=== PATIENT | male | born 1940 | race Caucasian/White ===

== ENCOUNTER 2019-03-25 07:03 | Inpatient (IN) | payer MEDICARE, OTHER ==
--- NOTE | 2019-03-17 10:14 | PREOPHP ---
DATE OF ADMISSION: 03/25/2019 The patient will have surgery with Dr. Enrique Moseley 03/25/2019. REASON FOR CONSULTATION: Consultation requested by Dr. Enrique Moseley for medical evaluation and clearance of a 79-year-old gentleman about to undergo surgery. Thank you, Dr. Moseley, for participating and allowing us to participate in care of our patient. HISTORY OF PRESENT ILLNESS: Marking that she was a 79-year-old gentleman, issues with his right hip. He is currently being admitted for correction of the above problem in terms of his mass. PAST MEDICAL AND SURGICAL HOSPITALIZATIONS: The patient has not had any medical hospitalizations. He has had the following surgeries: He has had a coronary artery bypass surgery for coronary artery disease, had a radical robotic prostatectomy done for prostate cancer, had several procedures for kidney stones and also had a fistula in ano repaired. He had fractured his right and left foot. MEDICATIONS: He is currently taking the following medications: 1. Lipitor 40 mg a day. 2. Toprol-XL 50 mg a.m. and 25 mg p.m. 3. Cozaar 100 mg a day. 4. Amlodipine 5 mg b.i.d. 5. Baby aspirin and pain medications. ALLERGIES: HE IS NOT ALLERGIC TO ANY MEDICATIONS. SOCIAL HISTORY: The patient is , has 2 sons and 7 grandchildren. He does not smoke. Alcohol socially. Drinks primarily decaf coffee. He has no difficulty sleeping at night and is currently retired. FAMILY HISTORY: Father at age 84 of an MA. Mother age 84 of a stroke. Two sisters have . One of malignancy. There is a family history of heart, hypertension, stroke and cancer. REVIEW OF SYSTEMS: HEENT: Tinnitus CARDIORESPIRATORY: Denies any chest pain or shortness of breath. GASTROINTESTINAL: No melena or hematemesis. GENITOURINARY: No urgency and frequency. MUSCULOSKELETAL: Positive for right hip and back pain. NEUROPSYCHIATRIC: Unremarkable. GENERAL HEALTH: As above. PHYSICAL EXAMINATION: VITAL SIGNS: The patient's blood pressure was 140/72, pulse was 76 and regular, respirations were 18, temperature 97.6. Height 5 feet 8 inches, weight 250 pounds. GENERAL: The patient was noted to be a well-developed, well-nourished male, alert and cooperative, in no apparent acute distress, oriented to time, place, and person. HEAD, EARS, EYES, NOSE AND THROAT: Head was atraumatic. Eyes: Pupils were equal, reactive to light and accommodation. Fundi were benign. Tympanic membranes were unremarkable. Nose was negative. Mouth was unremarkable. Fair oral hygiene was present. NECK: Supple without any rigidity. Trachea was midline. Thyroid was within normal limits. Neck veins were flat. Carotid pulses were equal. No bruits were heard. BACK: Unremarkable. CHEST: Symmetrical scar from prior sternotomy was noted. AXILLARY AND BREAST EXAM: Did not reveal any obvious masses. LUNGS: Clear to percussion and auscultation. HEART: PMI is fifth intercostal space at the midclavicular line. A regular sinus rhythm was noted. No significant murmurs, rubs, or gallops being elicited. ABDOMEN: Soft, good bowel sounds were noted. No significant organomegaly, masses, or tenderness being noted. Scar from prior prostate surgery being noted. GENITALIA: Normal male external genitalia. RECTAL AND PROSTATIC: Up to date per . EXTREMITIES: Did not reveal any clubbing, edema or cyanosis. Peripheral pulses were physiologic. SKIN: Moist and warm without any eruptions. No gross lymphadenopathy was noted. NEUROLOGIC: Grossly intact. IMPRESSION: 1. Degenerative joint disease, right hip. 2. Hypertension. 3. Hyperlipidemia. 4. Coronary artery disease status post coronary artery bypass surgery. 5. Prostate cancer status post prostatectomy. 6. Metabolic syndrome. 7. Stable health. DISCUSSION: Review of laboratory and other data revealed the following: The patient's EKG revealed patient's chemistries revealed normal electrolytes, glucose, BUN, creatinine, calcium, uric acid, and protein. His liver function tests, cholesterol, magnesium, and serum iron were normal. CBC, UA, PT and PTT were normal as well. The patient's EKG revealed sinus rhythm and has some nonspecific changes. The patient will be having any cardiac clearance prior to this surgery with Dr. Alex Betancourt. Chest x-ray revealed status post sternotomy, no acute infiltrates, nor were there any acute cardiopulmonary changes being noted. Dr. Moseley, I see no contraindication from my standpoint, this patient is undergoing current proposed surgery under desired form of anesthesia. I feel he is a suitable candidate at this particular point in time. The patient will also be getting cardiac clearance from his high climber and we will be more than happy to follow him with you during his stay at [facility]. Thank you again, Dr. Moseley, for participating and allowing us to participate in care of our patients. Dictated By: MANDEEP ROBERTSON MD SS/NTS Conf#: [id number] DID#: [id number] CC: ENRIQUE MOSELEY MD;*EndCC* MTDD
[2019-03-22 15:50] VITALS: BMI 36.0
[~2019-03-25] VITALS: Ht 177.8 cm; Wt 112.0 kg
[2019-03-25] VITALS (26 sets, daily range): BP systolic 112–174; BP diastolic 62–89; PULSE 66–85; RESP 14–21; Ht 177.8 cm; Wt 112.0 kg
--- NOTE | 2019-03-25 05:48 | HPN ---
Date/Time of Note Date/Time of Note DATE: 03/25/19 TIME: 05:48 Interval H&P Admission Note Pt. seen H&P reviewed: No system changes ENRIQUE MOSELEY MD Mar 25, 2019 05:48
--- NOTE | 2019-03-25 05:50 | OPR ---
Date/Time of Note Date/Time of Note DATE: 03/25/19 TIME: 05:48 Operative Report Procedure Date: Mar 25, 2019 Preoperative Diagnosis Right hip primary arthritis Postoperative Diagnosis Right hip primary arthritis Operation/Procedure Performed 1. Right total hip arthroplasty 2. Right hip injection of PRP Surgeon see signature line Pathological Technician Varun Ryan MD Second Pathological Technician: ALYCE LOVE PA-C Anesthesia Type: general Estimated Blood Loss: 150 - 200 ml's Transfusion none Specimen None Grafts/Implants See op note Complications none Pt Condition Post Procedure: stable Disposition: PACU Procedure Description MARINE PLUMBER SURGEON: Varun Ryan MD was asked to be present at my request as a result of the complexity associated with this procedure including positioning of the extremity, positioning of the instrumentation and protection of the neurovascular structures. In my opinion, the assistance offered by a certified surgical assistant is insufficient and Dr. Ryan should be compensated for his time. PROCEDURE IN DETAIL: Following the administration of general endotracheal anesthesia supplemented with a spinal anesthetic, the patient was placed in the supine position. The antecubital fossa on the right was prepped and 60 cc of blood were aspirated. Under sterile conditions, the blood was passed off to the sales representative rural power from the company who prepared the PRP solution. The right lower extremity was then prepped and draped in the usual sterile fashion. A football scout radiograph was obtained for preliminary limb length and femoral size as well as acetabular size. There were severe arthritic changes noted. Over the right hip, a lateral incision was then made exposing the tensor fascia and the fascia was incised. The tensor was retracted laterally and the vessels were cauterized. The anterior capsule was then identified and prepared incised. A capsulotomy was then performed and the femoral head was then evaluated. Severe arthritic changes were noted. A femoral head cut was then made in the appropriate degree of version and inclination. Following dislocation, severe arthritic changes were noted with very certain severe cystic changes in the femoral head. The acetabulum was then exposed and a capsulectomy and labrectomy were completed. The central portion was then entered and serially reamed up to the 65 mm size. A Depuy Albert Lea cup which was 66 mm, with a standard liner was then fit into position with solid fixation. A 30 mm screw was used for additional fixation. Attention was then directed to the femur, the femur was exposed and prepared. The canal was entered and serially reamed up to the size 7, high offset. The femoral canal was then thoroughly irrigated and the PRP solution was then instilled into the femoral canal. A size 7 high offset Depuy Actis stem was then inserted with solid fixation. A 36 mm, -1.5 mm femoral head, which was metal was then inserted. The leg was taken through full range of motion with no evident instability. In addition, radiographs revealed excellent position with reproduction of the limb lengths within a millimeter. The wound was irrigated thoroughly. The anterior capsule was then closed using a running #2 suture. The wound was then closed in layers and a Prenio for the final cover. This was watertight. Estimated blood loss was procedure was 200 cc. Postoperative radiographs will be obtained in the recovery room. ENRIQUE MOSELEY MD Mar 25, 2019 05:50
[~2019-03-25 07:03] MED LIST: BUPIVACAINE 0.5% (SDV) 30 ML, morphine SULFATE (PF) 8 MG, EPINEPHrine 0.3 MG, KETOROLAC... IRR SCH; CEFAZOLIN 2 GM/50 ML (PMX) 50 ML IVPB ONE; DEXAMETHASONE 2 MG TAB PO SCH; GABAPENTIN 300 MG CAP PO SCH; LACTATED RINGER'S 1,000 ML IV SCH; SOD CHLORIDE 0.9% 100 ML, TRANEXAMIC ACID 3,000 MG IRR SCH
[2019-03-25] MEDS ORDERED: METO-335 PO (07:57)
[2019-03-25] MEDS ORDERED: METO-319 PO (07:57)
[2019-03-25] MEDS ORDERED: LOSA100T15 PO (07:57)
[2019-03-25] MEDS ORDERED: AMLO2.5T78 PO (07:58)
[2019-03-25] MEDS ORDERED: ATOR40TA68 PO (07:58)
[2019-03-25] MEDS ORDERED: DOXY100T20 PO (08:00)
--- NOTE | 2019-03-25 08:08 | PREAC ---
Date/Time of Note Date/Time of Note DATE: 03/25/19 TIME: 08:07 Anesthesia Eval and Record Evaluation Time Pre-Procedure Interview DATE: 03/25/19 TIME: 08:07 Age 79 Sex male NPO: 8 hrs Preoperative diagnosis right hip osteoarthritis Planned procedure right anterior total hip arthroplasty Past Medical History Past Medical History: Includes Cardio: HTN, Dyslipidemia, CAD, CABG Renal: Other (kidney stones, history of prostate cancer ) GI: Obesity Surgery & Anesthesia Issues No known issue Meds Anticoagulation: No Beta Patricia within 24 hr: Yes Reason Beta Patricia not given: Bradycarida, Hypotension Reported Medications Doxycycline Hyclate* (Doxycycline Hyclate*) 100 Mg Tablet.dr, 100 MG PO BID, TAB STARTED 03-22-19 FOR 5 DAYS 03/25/19 Amlodipine Besylate* (Amlodipine Besylate*) 2.5 Mg Tablet, 2.5 MG PO DAILY, #30 TAB 03/25/19 Atorvastatin* (Atorvastatin*) 40 Mg Tablet, 40 MG PO QHS, #30 TAB 03/25/19 Losartan Potassium* (Losartan Potassium*) 100 Mg Tablet, 100 MG PO DAILY, TAB 03/25/19 Metoprolol Succinate* (Toprol XL*) 50 Mg Tab.er.24h, 50 MG PO QAM, #30 TAB 03/25/19 Metoprolol Succinate* (Toprol XL*) 25 Mg Tab.sr.24h, 25 MG PO QPM, #30 TAB 03/25/19 Current Medications Tranexamic Acid 100 ml @ 200 mls/hr Pre-op IVPB ; Start 03/25/19 at 06:30; Stop 03/25/19 at 16:00 Sodium Chloride/ Tranexamic Acid INTRA-OP IRR ; Start 03/25/19 at 06:30; Stop 03/25/19 at 16:00 Bupivacaine HCl/ Morphine Sulfate/ Epinephrine/ Ketorolac Tromethamine/ Clonidine/Sodium Chloride/ Vancomycin HCl INTRA-OP IRR ; Start 03/25/19 at 06:30 Dexamethasone (Decadron) 2 mg PREOP PO ; Start 03/25/19 at 06:30; Stop 03/25/19 at 16:00 Gabapentin (Neurontin) 300 mg ONCE PO ; Start 03/25/19 at 06:30; Stop 03/25/19 at 16:00 Lactated Ringer's 1,000 ml @ 0 mls/hr Q0M IV ; Start 03/25/19 at 06:00; Stop 03/25/19 at 16:00 Meds reviewed: Yes Allergies Coded Allergies: No Known Drug Allergies (Verified Allergy, Unknown, 03/25/19) Allergies Reviewed: Yes Labs/Studies Labs Reviewed: Reviewed by anesthesiologist test: N/A Studies: ECG, CXR Pre-procedure Exam Airway: Adequate mouth opening, Adequate thyromental dist Mallampati: Mallampati II Teeth: Normal Lung: Normal Heart: Normal ASA Physical Status ASA physical status: 3 Emergency: None Planned Anesthetic General/MAC: LMA Neuraxial: Spinal Nerve block: Femoral (right fascia iliaca) Planned Pain Management Sub-arachniod narcotics, Single shot nerve block, Parenteral pain med, Local by surgeon Pre-operative Attestations Prior to commencing anesthesia and surgery, the patient was re-evaluated, there was verification of: *The patient's identity *The results of appropriate recent lab work and preoperative vital signs *The above evaluation not changing prior to induction *Anesthetic plan, risk benefits, alternative and complications discussed with patient/family; questions answered; patient/family understands, accepts and wishes to proceed. MICHELLE LORA MD Mar 25, 2019 08:08
[2019-03-25] MEDS ORDERED: FENTAnyl 50 MCG/ML VIAL ONE (09:57)
[2019-03-25] MEDS ORDERED: MIDAZOLAM 1 MG/ML 2 ML INJ ONE (10:00)
[2019-03-25] MEDS ORDERED: MEPERIDINE 25 MG INJ IV PRN (10:00)
[2019-03-25] MEDS ORDERED: EPHEDrine 25 MG/5 ML SYG IV PRN (10:00)
[2019-03-25] MEDS ORDERED: HYDROmorphONE 1 MG/5 ML IV SYRINGE IV PRN ×3 (10:00)
[2019-03-25] MEDS ORDERED: LABETALOL HCL 20MG INJ IV PRN (10:00)
[2019-03-25] MEDS ORDERED: hydrALAzine 20 MG INJ IV PRN (10:00)
[2019-03-25] MEDS ORDERED: PROCHLORPERAZINE 10 MG INJ IV PRN (10:00)
[2019-03-25] MEDS ORDERED: ONDANSETRON 4 MG INJ IV PRN ×2 (10:00→12:30)
[2019-03-25] MEDS ORDERED: DIPHENHYDRAMINE 50 MG INJ IV PRN ×2 (10:00→12:30)
[2019-03-25] MEDS ORDERED: FENTAnyl 50 MCG/ML VIAL IV PRN (10:00)
[2019-03-25] MEDS ORDERED: POLYMYXIN/BACITRACIN 1L IRRIG ONE (10:07)
[2019-03-25] MEDS ORDERED: CEFAZOLIN 1 GM INJ ONE (10:19)
[2019-03-25] MEDS ORDERED: PROPOFOL 20 ML ONE (10:19)
[2019-03-25] MEDS ORDERED: LIDOCAINE 2% (SDV) 5 ML INJ ONE (10:19)
[2019-03-25] MEDS ORDERED: TRANEXAMIC ACID 1GM/100ML(PMX) 100 ML ONE ×2 (10:19→10:34)
[2019-03-25] MEDS ORDERED: CA CHLORIDE 10% 10 ML SYRINGE ONE (10:33)
[2019-03-25] MEDS ORDERED: THROMBIN 5000 UNIT (RECOTHROM) VIAL ONE (10:33)
[2019-03-25] MEDS ORDERED: FAMOTIDINE 20 MG INJ ONE (10:50)
[2019-03-25] MEDS ORDERED: DEXAMETHASONE 4 MG/ML 5 ML INJ ONE (10:50)
[2019-03-25] MEDS ORDERED: ONDANSETRON 4 MG INJ ONE (10:50)
[2019-03-25] MEDS ORDERED: POLYMYXIN/BACITRACIN 1L IRRIG IRR ONE (10:54)
[2019-03-25] MEDS: TRANEXAMIC ACID 1GM/100ML(PMX) 100 ML IVPB SCH ×2 (10:55→12:00)
[2019-03-25] MEDS ORDERED: EPHEDrine 25 MG/5 ML SYG ONE (11:03)
[2019-03-25] MEDS ORDERED: ROPIVACAINE 0.5 % 30 ML VIAL ONE (11:37)
[2019-03-25] MEDS ORDERED: NACL 0.9% 3 ML SYG IV SCH (12:30)
[2019-03-25] MEDS ORDERED: MAGNESIUM HYDROXIDE 30ML CUP PO PRN (12:30)
[2019-03-25] MEDS ORDERED: ZOLPIDEM 5 MG TAB PO PRN (12:30)
[2019-03-25] MEDS ORDERED: HYDROmorphONE 1 MG/ML SYG IV PRN (12:30)
[2019-03-25] MEDS ORDERED: oxyCODONE 5 MG TAB PO PRN ×2 (12:30)
--- NOTE | 2019-03-25 12:55 | PAC ---
Date/Time of Note Date/Time of Note DATE: 03/25/19 TIME: 12:55 Post-Anesthesia Notes Post-Anesthesia Note Last documented vital signs Vital Signs Date Temp Pulse Resp B/P (MAP) Pulse Ox O2 O2 Flow FiO2 Time Delivery Rate 03/25/19 97.9 85 16 174/89 95 Room Air 08:27 (117) Activity: WNL Respiratory function: WNL Cardiovascular function: WNL Mental status: Baseline Pain reasonably controlled: Yes Hydration appropriate: Yes Nausea/Vomiting absent: Yes Comments BP: 140/70 HR: 76 RR: 15 T: 99.6 SaO2: 100% MICHELLE LORA MD Mar 25, 2019 12:55
[2019-03-25] MEDS: ACETAMINOPHEN 1000MG/100ML IV 100 ML IVPB SCH ×2 (13:16→20:52)
[2019-03-25] MEDS: CEFAZOLIN 1 GM/50 ML (PMX) 50 ML IVPB SCH ×2 (13:26→20:53)
--- NOTE | 2019-03-25 13:38 | PDOCDIS ---
Discharge Instructions DIAGNOSIS Discharge Diagnosis Primary hip arthritis CONDITION [id number] Patient Condition: Betbv8o Good HOME CARE INSTRUCTIONS: [id number] Diet Instructions: [id number] Regular ACTIVITY: [id number] Activity Restrictions: [id number] Slowly Increase Activity Keep Limb Elevated [id number] Bathing Restrictions: [id number] Shower FOLLOW UP/APPOINTMENTS Follow-up Plan 2 weeks in the office SCHOOL/WORK RELEASE May return to School/Work with: With Restrictions School/Work Release Comment: No hip extension for 6 weeks ENRIQUE MOSELEY MD Mar 25, 2019 13:38
--- NOTE | 2019-03-25 13:40 | CONS ---
Consult Date/Type/Reason Admit Date/Time Mar 25, 2019 at 07:03 Initial Consult Date 03/16/2019 Type of Consultation: internal medicine Reason for Consultation pre-op medical evaluation and clearance . Requesting Provider: ENRIQUE MOSELEY MD Date/Time of Note DATE: 03/25/19 TIME: 13:33 Subjective post-op alert and responds to questions Objective Vitals Vital Signs Date Temp Pulse Resp B/P (MAP) Pulse Ox O2 O2 Flow FiO2 Time Delivery Rate 03/25/19 70 16 135/73 100 Nasal 2.0 13:20 (93) Cannula 03/25/19 99.6 12:34 Exam vital signs stable heent negative lungs clear heart regular rhythm abdomen soft Results/Medications Result Diagram: 03/25/19 1256 Results 24 hrs Laboratory Tests Test 03/25/19 12:56 White Blood Count 10.3 Red Blood Count 4.37 L Hemoglobin 14.0 Hematocrit 42.9 Mean Corpuscular Volume 98.2 Mean Corpuscular Hemoglobin 32.0 Mean Corpuscular Hemoglobin Concent 32.6 Red Cell Distribution Width 13.1 Platelet Count 183 Mean Platelet Volume 10.5 H Immature Granulocytes % 0.800 H Neutrophils % 89.7 H Lymphocytes % 7.9 L Monocytes % 1.3 Eosinophils % 0.1 Basophils % 0.2 Nucleated Red Blood Cells % 0.0 Immature Granulocytes # 0.080 H Neutrophils # 9.2 H Lymphocytes # 0.8 Monocytes # 0.1 L Eosinophils # 0.0 Basophils # 0.0 Nucleated Red Blood Cells # 0.0 Home Meds Reported Medications Doxycycline Hyclate* (Doxycycline Hyclate*) 100 Mg Tablet.dr, 100 MG PO BID, TAB STARTED 03-22-19 FOR 5 DAYS 03/25/19 Amlodipine Besylate* (Amlodipine Besylate*) 2.5 Mg Tablet, 2.5 MG PO DAILY, #30 TAB 03/25/19 Atorvastatin* (Atorvastatin*) 40 Mg Tablet, 40 MG PO QHS, #30 TAB 03/25/19 Losartan Potassium* (Losartan Potassium*) 100 Mg Tablet, 100 MG PO DAILY, TAB 03/25/19 Metoprolol Succinate* (Toprol XL*) 50 Mg Tab.er.24h, 50 MG PO QAM, #30 TAB 03/25/19 Metoprolol Succinate* (Toprol XL*) 25 Mg Tab.sr.24h, 25 MG PO QPM, #30 TAB 03/25/19 Medications Current Medications Tranexamic Acid 100 ml @ 200 mls/hr Pre-op IVPB Last administered on 03/25/19at 10:55; Start 03/25/19 at 06:30; Stop 03/25/19 at 16:00 Sodium Chloride/ Tranexamic Acid INTRA-OP IRR ; Start 03/25/19 at 06:30; Stop 03/25/19 at 16:00 Dexamethasone (Decadron) 2 mg PREOP PO Last administered on 03/25/19at 08:09; Admin Dose 2 MG; Start 03/25/19 at 06:30; Stop 03/25/19 at 16:00 Gabapentin (Neurontin) 300 mg ONCE PO Last administered on 03/25/19at 08:09; Admin Dose 300 MG; Start 03/25/19 at 06:30; Stop 03/25/19 at 16:00 Lactated Ringer's 1,000 ml @ 0 mls/hr Q0M IV Last administered on 03/25/19at 08:09; Admin Dose 0 MLS/HR; Start 03/25/19 at 06:00; Stop 03/25/19 at 16:00 Hydromorphone HCl (Dilaudid) 0.2 mg PACU PRN IV MILD PAIN 1-3; Start 03/25/19 at 10:00; Stop 03/25/19 at 14:00 Hydromorphone HCl (Dilaudid) 0.4 mg PACU PRN IV MOD PAIN 4-6; Start 03/25/19 at 10:00; Stop 03/25/19 at 14:00 Hydromorphone HCl (Dilaudid) 0.6 mg PACU PRN IV SEVERE PAIN 7-10; Start 03/25/19 at 10:00; Stop 03/25/19 at 14:00 Fentanyl (Sublimaze) 25 mcg PACU ORDER PRN IV MILD PAIN 1-3; Start 03/25/19 at 10:00; Stop 03/25/19 at 14:00 Ondansetron HCl (Zofran Inj) 4 mg PACU ORDER PRN IV NAUSEA/VOMITING; Start 03/25/19 at 10:00; Stop 03/25/19 at 14:00 Prochlorperazine (Compazine Inj) 5 mg PACU ORDER PRN IV NAUSEA/VOMITING; Start 03/25/19 at 10:00; Stop 03/25/19 at 14:00 Labetalol HCl (Labetalol) 5 mg PACU ORDER PRN IV HIGH BLOOD PRESSURE; Start 03/25/19 at 10:00; Stop 03/25/19 at 14:00 Hydralazine HCl (Apresoline) 5 mg PACU ORDER PRN IV HIGH BLOOD PRESSURE; Start 03/25/19 at 10:00; Stop 03/25/19 at 14:00 Ephedrine Sulfate 5 mg PACU ORDER PRN IV BLOOD PRESSURE SUPPORT; Start 03/25/19 at 10:00; Stop 03/25/19 at 14:00 Meperidine HCl (Demerol) 25 mg PACU ORDER PRN IV .RIGORS; Start 03/25/19 at 10:00; Stop 03/25/19 at 14:00 Diphenhydramine HCl (Benadryl) 12.5 mg PACU ORDER PRN IV .PRURITUS; Start 03/25/19 at 10:00; Stop 03/25/19 at 14:00 Amlodipine Besylate (Norvasc) 2.5 mg DAILY PO ; Start 03/26/19 at 09:00 Atorvastatin Calcium (Lipitor) 40 mg QHS PO ; Start 03/25/19 at 21:00 Losartan Potassium (Cozaar) 100 mg DAILY PO ; Start 03/26/19 at 09:00 Metoprolol Succinate (Toprol Xl) 25 mg QPM PO ; Start 03/25/19 at 21:00 Metoprolol Succinate (Toprol Xl) 50 mg QAM PO ; Start 03/26/19 at 09:00 Lactated Ringer's 1,000 ml @ 100 mls/hr Q10H IV ; Start 03/25/19 at 12:02 Cefazolin Sodium 50 ml @ 100 mls/hr Q8H IVPB Last administered on 03/25/19at 13:26; Admin Dose 100 MLS/HR; Start 03/25/19 at 12:30; Stop 03/26/19 at 04:59 Senna/Docusate Sodium (Senokot-S) 1 tab BID PO ; Start 03/25/19 at 21:00 Simethicone (Mylicon) 80 mg TID PRN PO .GAS; Start 03/25/19 at 12:30 Magnesium Hydroxide (Milk Of Mag) 30 ml BID PRN PO .CONSTIPATION; Start 03/25/19 at 12:30 Magnesium Hydroxide (Milk Of Mag) 30 ml HS PO ; Start 03/27/19 at 21:00 Dexamethasone (Decadron) 2 mg Q6 PO ; Start 03/25/19 at 18:00; Stop 03/26/19 at 12:01 Gabapentin (Neurontin) 300 mg HS PO ; Start 03/25/19 at 21:00 Acetaminophen 100 ml @ 400 mls/hr Q8H IVPB Last administered on 03/25/19at 13:16; Admin Dose 400 MLS/HR; Start 03/25/19 at 12:30; Stop 03/26/19 at 04:44 Oxycodone HCl (Roxicodone) 15 mg Q4H PRN PO .PAIN; Start 03/25/19 at 12:30 Oxycodone HCl (Roxicodone) 10 mg Q4H PRN PO .PAIN; Start 03/25/19 at 12:30 Oxycodone HCl (Roxicodone) 5 mg Q4H PRN PO .PAIN; Start 03/25/19 at 12:30 Hydromorphone HCl (Dilaudid) 1 mg Q4H PRN IV .BREAKTHROUGH PAIN; Start 03/25/19 at 12:30 Ondansetron HCl (Zofran Inj) 4 mg Q6H PRN IV NAUSEA/VOMITING; Start 03/25/19 at 12:30 Diphenhydramine HCl (Benadryl) 25 mg Q6H PRN IV .PRURITUS; Start 03/25/19 at 12:30 Zolpidem Tartrate (Ambien) 10 mg HS PRN PO .INSOMNIA; Start 03/25/19 at 12:30 IV Flush (NS 3 ml) 3 ml per protocol IV ; Start 03/25/19 at 12:30 Aspirin (Ecotrin) 325 mg DAILY PO ; Start 03/26/19 at 09:00 Assessment/Plan Hospital Course (Demo Recall) patient post op THR right side stable at this point Assessment/Plan (Daily) pre-op meds reordered patient stable at this point will follow thank you MANDEEP Banks MD Mar 25, 2019 13:40
[2019-03-25] MEDS: DEXAMETHASONE 2 MG TAB PO SCH ×2 (17:30→23:53)
[2019-03-25] MEDS: LACTATED RINGER'S 1,000 ML IV SCH ×2 (17:32→22:02)
[2019-03-25] MEDS: SENNA/DOCUSATE NA (8.6MG/50MG) TAB PO SCH (20:53)
[2019-03-25] MEDS ORDERED: GABAPENTIN 300 MG CAP PO SCH (21:00)
[2019-03-25] MEDS ORDERED: ATORVASTATIN 40 MG TAB PO SCH (21:00)
[2019-03-25] MEDS ORDERED: METOPROLOL (XL) 25 MG TAB PO SCH (21:00)
[2019-03-26] MEDS: ACETAMINOPHEN 1000MG/100ML IV 100 ML IVPB SCH (04:55)
[2019-03-26] MEDS: LACTATED RINGER'S 1,000 ML IV SCH (05:18)
[2019-03-26] MEDS: CEFAZOLIN 1 GM/50 ML (PMX) 50 ML IVPB SCH (05:18)
[2019-03-26] MEDS: DEXAMETHASONE 2 MG TAB PO SCH ×2 (05:37→12:28)
--- NOTE | 2019-03-26 05:48 | PN ---
Date/Time of Note Date/Time of Note DATE: 03/26/19 TIME: 05:47 Subjective Awake and alert. Doing well. Objective Vitals Vital Signs Date Temp Pulse Resp B/P (MAP) Pulse Ox O2 O2 Flow FiO2 Time Delivery Rate 03/25/19 98.0 72 112/62 96 Nasal 23:51 (79) Cannula 03/25/19 18 20:05 03/25/19 2.0 16:00 Intake and Output 03/25/19 03/25/19 03/26/19 1515:00 23:00 07:00 IntakeIntake Total 450 ml 1240 ml OutputOutput Total 400 ml 400 ml BalanceBalance 50 ml 840 ml Wound clean and dry. Neurologically intact. No signs of DVT. Results Result Diagram: 03/26/19 0433 Medications Medications Current Medications Amlodipine Besylate (Norvasc) 2.5 mg DAILY PO ; Start 03/26/19 at 09:00 Atorvastatin Calcium (Lipitor) 40 mg QHS PO Last administered on 03/25/19at 20:53; Admin Dose 40 MG; Start 03/25/19 at 21:00 Losartan Potassium (Cozaar) 100 mg DAILY PO ; Start 03/26/19 at 09:00 Metoprolol Succinate (Toprol Xl) 25 mg QPM PO Last administered on 03/25/19at 20:53; Admin Dose 25 MG; Start 03/25/19 at 21:00 Metoprolol Succinate (Toprol Xl) 50 mg QAM PO ; Start 03/26/19 at 09:00 Lactated Ringer's 1,000 ml @ 100 mls/hr Q10H IV Last administered on 03/26/19at 05:18; Admin Dose 100 MLS/HR; Start 03/25/19 at 12:02 Senna/Docusate Sodium (Senokot-S) 1 tab BID PO Last administered on 03/25/19at 20:53; Admin Dose 1 TAB; Start 03/25/19 at 21:00 Simethicone (Mylicon) 80 mg TID PRN PO .GAS; Start 03/25/19 at 12:30 Magnesium Hydroxide (Milk Of Mag) 30 ml BID PRN PO .CONSTIPATION; Start 03/25/19 at 12:30 Magnesium Hydroxide (Milk Of Mag) 30 ml HS PO ; Start 03/27/19 at 21:00 Dexamethasone (Decadron) 2 mg Q6 PO Last administered on 03/26/19at 05:37; Admin Dose 2 MG; Start 03/25/19 at 18:00; Stop 03/26/19 at 12:01 Gabapentin (Neurontin) 300 mg HS PO Last administered on 03/25/19at 20:53; Admin Dose 300 MG; Start 03/25/19 at 21:00 Oxycodone HCl (Roxicodone) 15 mg Q4H PRN PO .PAIN; Start 03/25/19 at 12:30 Oxycodone HCl (Roxicodone) 10 mg Q4H PRN PO .PAIN; Start 03/25/19 at 12:30 Oxycodone HCl (Roxicodone) 5 mg Q4H PRN PO .PAIN; Start 03/25/19 at 12:30 Hydromorphone HCl (Dilaudid) 1 mg Q4H PRN IV .BREAKTHROUGH PAIN; Start 03/25/19 at 12:30 Ondansetron HCl (Zofran Inj) 4 mg Q6H PRN IV NAUSEA/VOMITING; Start 03/25/19 at 12:30 Diphenhydramine HCl (Benadryl) 25 mg Q6H PRN IV .PRURITUS; Start 03/25/19 at 12:30 Zolpidem Tartrate (Ambien) 10 mg HS PRN PO .INSOMNIA; Start 03/25/19 at 12:30 IV Flush (NS 3 ml) 3 ml per protocol IV ; Start 03/25/19 at 12:30 Aspirin (Ecotrin) 325 mg DAILY PO ; Start 03/26/19 at 09:00 VTE Prophylaxis Risk score (from Nsg)>0 risk: 8 SCD applied (from Nsg): Yes Lines/Catheters IV Catheter Type: Saline Lock Gardner in Place: No Assessment/Plan Assessment/Plan Assessment: Status post total hip replacement. He also has a WBC count of 15,000, which I believe to be due to the dexamethasone and a reactive shift. Plan: Begin PT this morning. Discharge home after clearance by PT. ENRIQUE MOSELEY MD Mar 26, 2019 05:48
--- NOTE | 2019-03-26 05:49 | DS ---
Date/Time of Note Date/Time of Note DATE: 03/26/19 TIME: 05:48 Discharge Summary Admission/Discharge Info Admit Date/Time Mar 25, 2019 at 07:03 Discharge Date/Time 03/26/2019 Discharge Diagnosis Primary hip arthritis Patient Condition: Good Hospital Course Admitted, underwent uncomplicated procedure. Postop day 1 discharge after PT. Home Meds Reported Medications Doxycycline Hyclate* (Doxycycline Hyclate*) 100 Mg Tablet.dr, 100 MG PO BID, TAB STARTED 03-22-19 FOR 5 DAYS 03/25/19 Amlodipine Besylate* (Amlodipine Besylate*) 2.5 Mg Tablet, 2.5 MG PO DAILY, #30 TAB 03/25/19 Atorvastatin* (Atorvastatin*) 40 Mg Tablet, 40 MG PO QHS, #30 TAB 03/25/19 Losartan Potassium* (Losartan Potassium*) 100 Mg Tablet, 100 MG PO DAILY, TAB 03/25/19 Metoprolol Succinate* (Toprol XL*) 50 Mg Tab.er.24h, 50 MG PO QAM, #30 TAB 03/25/19 Metoprolol Succinate* (Toprol XL*) 25 Mg Tab.sr.24h, 25 MG PO QPM, #30 TAB 03/25/19 Follow-up Plan 2 weeks in the office Primary Care Provider Mitchel Sandoval MD Pending Labs Laboratory Tests Test 03/25/19 12:56 03/26/19 04:33 White Blood Count 10.3 10^3/ul (4.8-10.8) 15.1 10^3/ul (4.8-10.8) Red Blood Count 4.37 10^6/ul (4.70-6.10) 3.96 10^6/ul (4.70-6.10) Hemoglobin 14.0 g/dl (14.0-18.0) 12.7 g/dl (14.0-18.0) Hematocrit 42.9 % (42.0-52.0) 38.3 % (42.0-52.0) Mean Corpuscular Volume 98.2 fl (82.0-101.0) 96.7 fl (82.0-101.0) Mean Corpuscular 32.0 pg (29.0-33.0) 32.1 pg (29.0-33.0) Hemoglobin Mean Corpuscular 32.6 g/dl (32.0-37.0) 33.2 g/dl (32.0-37.0) Hemoglobin Concent Red Cell Distribution 13.1 % (11.5-14.5) 12.7 % (11.5-14.5) Width Platelet Count 183 10^3/UL (140-415) 170 10^3/UL (140-415) Mean Platelet Volume 10.5 fl (7.4-10.4) 11.2 fl (7.4-10.4) Immature Granulocytes % 0.800 % (0.001-0.429) 0.700 % (0.001-0.429) Neutrophils % 89.7 % (39.0-77.0) 89.1 % (39.0-77.0) Lymphocytes % 7.9 % (15.0-51.0) 4.4 % (15.0-51.0) Monocytes % 1.3 % (0.0-11.0) 5.7 % (0.0-11.0) Eosinophils % 0.1 % (0.0-7.0) 0.0 % (0.0-7.0) Basophils % 0.2 % (0.0-2.0) 0.1 % (0.0-2.0) Nucleated Red Blood Cells 0.0 /100WBC (0.0-0.0) 0.0 /100WBC (0.0-0.0) % Immature Granulocytes # 0.080 10^3/ul (0.0-0.031) 0.100 10^3/ul (0.0-0.031) Neutrophils # 9.2 10^3/ul (1.6-7.5) 13.5 10^3/ul (1.6-7.5) Lymphocytes # 0.8 10^3/ul (0.8-2.9) 0.7 10^3/ul (0.8-2.9) Monocytes # 0.1 10^3/ul (0.3-0.9) 0.9 10^3/ul (0.3-0.9) Eosinophils # 0.0 10^3/ul (0.0-0.5) 0.0 10^3/ul (0.0-0.5) Basophils # 0.0 10^3/ul (0.0-0.1) 0.0 10^3/ul (0.0-0.1) Nucleated Red Blood Cells 0.0 10^3/ul (0.0-0.0) 0.0 10^3/ul (0.0-0.0) # ENRIQUE MOSELEY MD Mar 26, 2019 05:48
[2019-03-26 07:06] VITALS: BP 138/72; PULSE 82; RESP 20
--- NOTE | 2019-03-26 08:06 | CONS ---
Consult Date/Type/Reason Admit Date/Time Mar 25, 2019 at 07:03 Initial Consult Date 03/16/2019 Type of Consultation: internal medicine Reason for Consultation post-op medical f/u Requesting Provider: ENRIQUE MOSELEY MD Date/Time of Note DATE: 03/26/19 TIME: 07:58 Subjective doing well still not feeling pain in right lower extremity,stable in general Objective Vitals Vital Signs Date Temp Pulse Resp B/P (MAP) Pulse Ox O2 O2 Flow FiO2 Time Delivery Rate 03/26/19 98.2 82 20 138/72 98 07:06 (94) 03/25/19 Nasal 23:51 Cannula 03/25/19 2.0 16:00 Intake and Output 03/25/19 03/25/19 03/26/19 1515:00 23:00 07:00 IntakeIntake Total 450 ml 1240 ml 1600 ml OutputOutput Total 400 ml 400 ml 800 ml BalanceBalance 50 ml 840 ml 800 ml Exam Vital signs stable HEENT negative Lungs clear Heart regular rhythm Results/Medications Result Diagram: 03/26/19 0433 Results 24 hrs Laboratory Tests Test 03/25/19 12:56 03/26/19 04:33 03/26/19 07:27 White Blood Count 10.3 15.1 #H Red Blood Count 4.37 L 3.96 L Hemoglobin 14.0 12.7 L Hematocrit 42.9 38.3 L Mean Corpuscular Volume 98.2 96.7 Mean Corpuscular Hemoglobin 32.0 32.1 Mean Corpuscular 32.6 33.2 Hemoglobin Concent Red Cell Distribution Width 13.1 12.7 Platelet Count 183 170 Mean Platelet Volume 10.5 H 11.2 H Immature Granulocytes % 0.800 H 0.700 H Neutrophils % 89.7 H 89.1 H Lymphocytes % 7.9 L 4.4 L Monocytes % 1.3 5.7 Eosinophils % 0.1 0.0 Basophils % 0.2 0.1 Nucleated Red Blood Cells % 0.0 0.0 Immature Granulocytes # 0.080 H 0.100 H Neutrophils # 9.2 H 13.5 H Lymphocytes # 0.8 0.7 L Monocytes # 0.1 L 0.9 Eosinophils # 0.0 0.0 Basophils # 0.0 0.0 Nucleated Red Blood Cells # 0.0 0.0 Lab Scanned Report REFERENCE [facility] Home Meds Reported Medications Doxycycline Hyclate* (Doxycycline Hyclate*) 100 Mg Tablet.dr, 100 MG PO BID, TAB STARTED 03-22-19 FOR 5 DAYS 03/25/19 Amlodipine Besylate* (Amlodipine Besylate*) 2.5 Mg Tablet, 2.5 MG PO DAILY, #30 TAB 03/25/19 Atorvastatin* (Atorvastatin*) 40 Mg Tablet, 40 MG PO QHS, #30 TAB 03/25/19 Losartan Potassium* (Losartan Potassium*) 100 Mg Tablet, 100 MG PO DAILY, TAB 03/25/19 Metoprolol Succinate* (Toprol XL*) 50 Mg Tab.er.24h, 50 MG PO QAM, #30 TAB 03/25/19 Metoprolol Succinate* (Toprol XL*) 25 Mg Tab.sr.24h, 25 MG PO QPM, #30 TAB 03/25/19 Medications Current Medications Amlodipine Besylate (Norvasc) 2.5 mg DAILY PO ; Start 03/26/19 at 09:00 Atorvastatin Calcium (Lipitor) 40 mg QHS PO Last administered on 03/25/19at 20:53; Admin Dose 40 MG; Start 03/25/19 at 21:00 Losartan Potassium (Cozaar) 100 mg DAILY PO ; Start 03/26/19 at 09:00 Metoprolol Succinate (Toprol Xl) 25 mg QPM PO Last administered on 03/25/19at 20:53; Admin Dose 25 MG; Start 03/25/19 at 21:00 Metoprolol Succinate (Toprol Xl) 50 mg QAM PO ; Start 03/26/19 at 09:00 Lactated Ringer's 1,000 ml @ 100 mls/hr Q10H IV Last administered on 03/26/19at 05:18; Admin Dose 100 MLS/HR; Start 03/25/19 at 12:02 Senna/Docusate Sodium (Senokot-S) 1 tab BID PO Last administered on 03/25/19at 20:53; Admin Dose 1 TAB; Start 03/25/19 at 21:00 Simethicone (Mylicon) 80 mg TID PRN PO .GAS; Start 03/25/19 at 12:30 Magnesium Hydroxide (Milk Of Mag) 30 ml BID PRN PO .CONSTIPATION; Start 03/25/19 at 12:30 Magnesium Hydroxide (Milk Of Mag) 30 ml HS PO ; Start 03/27/19 at 21:00 Dexamethasone (Decadron) 2 mg Q6 PO Last administered on 03/26/19at 05:37; Admin Dose 2 MG; Start 03/25/19 at 18:00; Stop 03/26/19 at 12:01 Gabapentin (Neurontin) 300 mg HS PO Last administered on 03/25/19at 20:53; Admin Dose 300 MG; Start 03/25/19 at 21:00 Oxycodone HCl (Roxicodone) 15 mg Q4H PRN PO .PAIN; Start 03/25/19 at 12:30 Oxycodone HCl (Roxicodone) 10 mg Q4H PRN PO .PAIN; Start 03/25/19 at 12:30 Oxycodone HCl (Roxicodone) 5 mg Q4H PRN PO .PAIN; Start 03/25/19 at 12:30 Hydromorphone HCl (Dilaudid) 1 mg Q4H PRN IV .BREAKTHROUGH PAIN; Start 03/25/19 at 12:30 Ondansetron HCl (Zofran Inj) 4 mg Q6H PRN IV NAUSEA/VOMITING; Start 03/25/19 at 12:30 Diphenhydramine HCl (Benadryl) 25 mg Q6H PRN IV .PRURITUS; Start 03/25/19 at 12:30 Zolpidem Tartrate (Ambien) 10 mg HS PRN PO .INSOMNIA; Start 03/25/19 at 12:30 IV Flush (NS 3 ml) 3 ml per protocol IV ; Start 03/25/19 at 12:30 Aspirin (Ecotrin) 325 mg DAILY PO ; Start 03/26/19 at 09:00 Assessment/Plan Hospital Course (Demo Recall) patient post op THR right side stable at this point Assessment/Plan (Daily) per medically stable possible discharge if cleared by therapist. [facility]oya MD Mar 26, 2019 08:06
[2019-03-26] MEDS ORDERED: METOPROLOL (XL) 50 MG TAB PO SCH (09:00)
[2019-03-26] MEDS ORDERED: AMLODIPINE 2.5 MG TAB PO SCH (09:00)
[2019-03-26] MEDS ORDERED: ASPIRIN (EC) 325 MG TAB PO SCH (09:00)
[2019-03-26] MEDS ORDERED: LOSARTAN 50 MG TAB PO SCH (09:00)
[2019-03-26] MEDS: oxyCODONE 5 MG TAB PO PRN ×2 (09:33→14:09)
[2019-03-26] MEDS: SENNA/DOCUSATE NA (8.6MG/50MG) TAB PO SCH (09:35)
[2019-03-27] MEDS ORDERED: MAGNESIUM HYDROXIDE 30ML CUP PO SCH (21:00)
== END 2019-03-26 14:30 | disposition home or self-care (01) | DRG 470 ==
LOC: REC 07:03 → EDSTATUS 12:00 → MS1 13:40
PROVIDERS: ADMIT Orthopaedic Surgery; ATTEND Orthopaedic Surgery
PROC: 0SR902A Replacement of Right Hip Joint with Metal on Polyethylene Synthetic Substitute, Uncemented, Open Approach (ICD-10-PCS; principal; 2019-03-25 09:30)
DX: M16.11 Unilateral primary osteoarthritis, right hip (principal); I10 Essential (primary) hypertension; E78.5 Hyperlipidemia, unspecified; Z95.1 Presence of aortocoronary bypass graft; E88.81 Metabolic syndrome and other insulin resistance; Z85.46 Personal history of malignant neoplasm of prostate
CPT/HCPCS: 72170; 73530; 85025; 86999; 87086; 88304; 88311; 97110; 97116; 97161; C1713; C1776; J0131; J0171; J0690; J0735; J1100; J1885; J2250; J2274; J2405; J2795; J3010; J3370; J7120